=== PATIENT | female | born 1940 | race Caucasian/White ===

== ENCOUNTER → 2016-09-12 | Outpatient (CLI) | payer MEDICARE | END | disposition home or self-care (01) | LOC: CFH 10:41 | PROVIDERS: ATTEND Nurse Practitioner Family | DX: G31.9 Degenerative disease of nervous system, unspecified (principal); I67.82 Cerebral ischemia | CPT/HCPCS: 70450 ==

== ENCOUNTER → 2016-11-14 | Outpatient (CLI) | payer MEDICARE ==
[~2016-11-14] MED LIST: GADOBUTROL 7.5 MMOL/7.5 ML VIAL ONE
== END | disposition home or self-care (01) ==
LOC: CFH 09:48
PROVIDERS: ATTEND Nurse Practitioner Family
DX: G31.9 Degenerative disease of nervous system, unspecified (principal); R90.82 White matter disease, unspecified; I73.9 Peripheral vascular disease, unspecified; M50.323 Other cervical disc degeneration at C6-C7 level; M50.23 Other cervical disc displacement, cervicothoracic region; M46.82 Other specified inflammatory spondylopathies, cervical region; M43.12 Spondylolisthesis, cervical region; M13.88 Other specified arthritis, other site; M25.78 Osteophyte, vertebrae; R60.0 Localized edema
CPT/HCPCS: 70553; 72141; 82565; A9585

== ENCOUNTER 2018-11-02 12:47 | Outpatient (CLI) | payer MEDICARE | END 2018-11-02 23:59 | disposition home or self-care (01) | LOC: CFH 12:47 | PROVIDERS: ATTEND Nurse Practitioner Family | DX: Z12.2 Encounter for screening for malignant neoplasm of respiratory organs (principal); M85.88 Other specified disorders of bone density and structure, other site; Z87.891 Personal history of nicotine dependence | CPT/HCPCS: 77080; G0297 ==

== ENCOUNTER 2019-10-17 12:56 | Emergency (ER) | payer MEDICARE ==
[~2019-10-17] VITALS: Ht 160 cm; Wt 50.9 kg
[2019-10-17] MEDS ORDERED: trazodone PO (13:24)
[2019-10-17] MEDS ORDERED: multivitamins (13:24)
[2019-10-17] MEDS ORDERED: LOSA50TA14 PO (13:24)
--- NOTE | 2019-10-17 13:24 | NUR ---
Pt [place] ED by [place] [facility] [place] [address] [place] c/o HTN, RUSH, and bilateral hand numbness and tingling. Pt recieved 500 mL of NS lpta. Pt took home blood pressure med last night. 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 NADN. No other needs expressed. Bedrails up for safety measures and call [facility] within reach.
[2019-10-17] MEDS ORDERED: LABETALOL 5MG/ML, 20ML ONE (13:38)
--- NOTE | 2019-10-17 13:49 | NUR ---
Medications provided per [facility]AR. Pt appreciative. Provided blanket and water for pt per request. NADN. No other needs expressed.
[2019-10-17] MEDS ORDERED: SODIUM CHLORIDE FLUSH 10ML SYR IVF ONE (14:00)
[2019-10-17] MEDS ORDERED: LABETALOL 5MG/ML, 20ML IVPush ONE (14:00)
[2019-10-17 14:03] LABS: BASOPHILS # (AUTO) 0.03 x10^3/uL (0-0.1); BASOPHILS % (AUTO) 0 % (0-1); EOSINOPHILS # (AUTO) 0.02 x10^3/uL (0-0.4); EOSINOPHILS % (AUTO) 0 % (1-7); LYMPHOCYTES # (AUTO) 1.15 x10^3/uL (1-3.4); LYMPHOCYTES % (AUTO) 16 % (22-44); MD NO; MEAN CORPUSCULAR HEMOGLOBIN 30.8 pg (27.0-34.8); MEAN CORPUSCULAR HGB CONC 33.7 g/dL (32.4-35.8); MEAN PLATELET VOLUME 6.7 fL (7.4-10.4); MONOCYTES # (AUTO) 0.49 x10^3/uL (0.2-0.8); MONOCYTES % (AUTO) 7 % (2-9); NEUTROPHILS # (AUTO) 5.61 x10^3/uL (1.8-6.8); NEUTROPHILS % (AUTO) 77 % (42-75); PLATELET COUNT 385 x10^3/uL (130-400); RED BLOOD COUNT 4.75 x10^6/uL (3.82-5.3); RED CELL DISTRIBUTION WIDTH 13.1 % (9.6-15.2)
[2019-10-17 14:11] LABS: ALBUMIN 3.7 g/dL (3.4-5.0); ANION GAP 8 mmol/L (5-15); CALCIUM 8.8 mg/dL (8.5-10.1); CHLORIDE 100 mmol/L (98-107)
[2019-10-17 14:16] LABS: ALANINE AMINOTRANSFERASE 22 U/L (12-78); ALKALINE PHOSPHATASE 102 U/L (45-117); BILIRUBIN,TOTAL 0.9 mg/dL (0.2-1.0); CREATININE 0.55 mg/dL (0.55-1.02); TOTAL PROTEIN 6.9 g/dL (6.4-8.2)
[2019-10-17] MEDS ORDERED: ACETAMINOPHEN 500 MG TABLET PO ONE (14:30)
[2019-10-17] MEDS ORDERED: ACETAMINOPHEN 500 MG TABLET ONE (14:33)
--- NOTE | 2019-10-17 14:40 | NUR ---
BREAK RN: PT RETURNED FROM CT, AMBULATED TO BR STEADILY, NOW UPRIGHT ON GURNEY AWAKE & COMFORTABLE, RESPONDS APPROP TO STAFF, NAD, COMFORT MEASURES PROVIDED, CALL LIGHT WITHIN REACH.
[2019-10-17 15:13] VITALS: BP 152/73
--- NOTE | 2019-10-17 15:13 | NUR ---
MD AT BEDSIDE DISCUSSING SODIUM LEVELS AND DISCHARGE PLANNING
--- NOTE | 2019-10-17 15:25 | NUR ---
Patient given discharge instructions and they have confirmed that they understand the instructions. Patient ambulatory with steady gait. Pt left with d/c paperwork, Rx, and all personal belongings. NADN. No needs expressed.
== END 2019-10-17 15:31 | disposition home or self-care (01) ==
LOC: ED 15:16
DX: I10 Essential (primary) hypertension (principal); E87.1 Hypo-osmolality and hyponatremia; R51 Headache; R94.31 Abnormal electrocardiogram [ECG] [EKG]
CPT/HCPCS: 36415; 70450; 80053; 84484; 85025; 93005; 96374; 99285